=== PATIENT | male | born 1990 ===

== ENCOUNTER 2017-04-08 08:29 | Emergency (ER) | payer OTHER ==
[2017-04-08 08:39] VITALS: TEMP 98
[2017-04-08] MEDS ORDERED: Sodium Chloride 0.9% 500 ML IV ONE (09:00)
--- NOTE | 2017-04-08 09:08 | C.PDOC ---
History Of Present Illness 27 yo male w/o significant PMHx come in for evaluation of Left sided sharp chest pain developed since yesterday. Pt reports, pain is intermittent, sharp, non-radiating, improves with pressure applied to chest wall by hand. Pt admits, was seen by PMD Dr. Nair 1 week ago " he told me that I need to see barrel rifler button". Pt reports, " never had chest pain in my life, first time yesterday". Pt admits, previous hx of anxiety in past. Otherwise, pt denies fever, chills, headache, dizziness, visual changes, neck pain, SOB, dyspnea, diaphoresis, palpitation, cough, wheezing, abd. pain, N/V/D, back pain, UTI sx, denies drug use, smoking. Pt denies any known family hx of early CAD. At the time of evaluation, comfortable, not in any apparent distress. Time Seen by Provider: 04/08/17 08:33 Chief Complaint (Nursing): Chest Pain History Per: Patient History/Exam Limitations: no limitations Onset/Duration Of Symptoms: Days (1) Current Symptoms Are (Timing): Still Present Quality: Sharp Past Medical History Reviewed: Historical Data, Nursing Documentation, Vital Signs Vital Signs: Last Vital Signs Temp 98 F 04/08/17 08:39 Pulse 65 04/08/17 13:12 Resp 16 04/08/17 13:12 BP 130/73 04/08/17 13:12 Pulse Ox 100 04/08/17 13:12 Surgical History: Appendectomy Family History: States: No Known Family Hx - Social History Hx Alcohol Use: No Hx Substance Use: No - Immunization History Hx Tetanus Toxoid Vaccination: No Hx Influenza Vaccination: No Hx Pneumococcal Vaccination: No Review Of Systems Except As Marked, All Systems Reviewed And Found Negative. Constitutional: Negative for: Fever, Chills Eyes: Negative for: Vision Change Cardiovascular: Positive for: Chest Pain (Left sided chest pain). Negative for : Palpitations Respiratory: Negative for: Cough, Shortness of Breath, Wheezing Gastrointestinal: Negative for: Nausea, Vomiting, Abdominal Pain, Diarrhea Musculoskeletal: Negative for: Neck Pain, Back Pain Neurological: Negative for: Headache, Dizziness Physical Exam - Physical Exam Appears: Well, Non-toxic, No Acute Distress Skin: Normal Color, Warm, Dry, No Rash Head: Normacephalic Eye(s): bilateral: PERRL Nose: No Flaring, No Discharge Oral Mucosa: Moist, No Drooling Throat: No Erythema, No Exudate, No Drooling Neck: No Midline Cervical Tenderness, No Paracervical Tenderness, No Step Off Deformity, Supple Chest: Symmetrical, No Deformity, Tenderness (mild reproducable tenderness left lateral chest wall over pectoris muscle.), No Ecchymosis, No Subcutaneous Emphysema Cardiovascular: Rhythm Regular, No Friction Rub, No Murmur, No JVD, Other ((-) carotid bruits B/L) Respiratory: No Decreased Breath Sounds, No Accessory Muscle Use, No Stridor, No Wheezing Gastrointestinal/Abdominal: Soft, No Tenderness, No Distention, No Guarding Back: No CVA Tenderness, No Vertebral Tenderness Extremity: Normal ROM, No Pedal Edema, No Deformity Neurological/Psych: Oriented x3, Normal Speech ED Course And Treatment - Laboratory Results Result Diagrams: 04/08/17 09:08 04/08/17 09:08 Lab Interpretation: No Acute Changes ECG: Interpreted By Me, Viewed By Me ECG Rhythm: Sinus Rhythm Interpretation Of ECG: SR@68/min, NAD, incomplete RBBB, no acute T wave or ST-T changes. No old EKG available Rate From EC (BPM) O2 Sat by Pulse Oximetry: 100 (RA) Pulse Ox Interpretation: Normal - Radiology CXR: Viewed By Me, Read By Radiologist CXR Interpretation: Yes: No Acute Disease - CT Scan/US CT - Angio Chest Other Rad Studies (CT/US): Read By Radiologist, Radiology Report Reviewed CT/US Interpretation: PROCEDURE: CT Chest with contrast (Pulmonary Angiogram). HISTORY: chest pain. COMPARISON: None available. TECHNIQUE: Axial computed tomography images were obtained of the chest in the pulmonary arterial phase of enhancement. Coronal and sagittal reformatted images were created and reviewed. Intravenous contrast dose: 100 milliliters Visipaque 320. Radiation dose: Total exam DLP = 301.36 MGy-cm. This CT exam was performed using one or more of the following dose reduction techniques: Automated exposure control, adjustment of the mA and/or kV according to patient size, and/or use of iterative reconstruction technique. FINDINGS: PULMONARY ARTERIES: Evaluation of the pulmonary distal segmental branches is performed. The subsegmental branches is limited by motion artifact. However, there are no filling defects within the main, segmental or subsegmental pulmonary arteries suggest pulmonary embolism. AORTA: No acute findings. No thoracic aortic aneurysm. LUNGS: Unremarkable. No nodule, mass or pulmonary consolidation. PLEURAL SPACES: Unremarkable. No effusion or pneuomothorax. HEART: Unremarkable. No cardiomegaly. No significant pericardial effusion. LYMPH NODES: No lymphadenopathy. BONES, CHEST WALL: Unremarkable. No fracture or destructive lesion. OTHER FINDINGS: Unremarkable. IMPRESSION: Unremarkable CT pulmonary angiogram. No pulmonary embolus. Progress Note: Pt was OBS in ED for 3.5 hrs and remained stable during ED evaluation. Pt reports, " feel better", denies CP at present time. Afebrile, hemodynamicaly stable, not n any apparent distress. PulseOx 100% RA. neck: Supple, (-) JVD, (-) carotid bruits B/L. Lungs: CTA B/L, BS equal B/L. CVS: (+ )S1S2, reg. Abd: benign, (-) guarding, (-) rebound. back: (-) CVA tenderness. Blood work, imaging, EKG review and all appears normal. case discussed with ED attending and discharge with outpt f[facility]. results review with pt, [facility], Card in 2-3 days for re-eval and further tx. Pt understand, stable for discharge now. Medical Decision Making Medical Decision Making: PLAN: * CT - Angio Chest * CXR * EKG * Drug Screen * Troponin * D-Dimer * CBC * CMP * Urinalysis * Aspirin PO * Toradol IVP * Sodium Chloride IV Disposition Counseled Patient/Family Regarding: Diagnosis, Need For Followup - Disposition Referrals: [facility] [Outside] Disposition: HOME/ ROUTINE Disposition Time: 12:43 Condition: STABLE Additional Instructions: Follow up with PMD in 2-3 days for re-evaluation. Return to ED if any worsening or new changes. Instructions: Chest Pain (ED) Forms: [facility] (Croatian), Work Excuse - Clinical Impression Clinical Impression: Chest pain - PA / .NET PROGRAMMER / Resident Statement MD/DO has reviewed & agrees with the documentation as recorded. - Scribe Statement The provider has reviewed the documentation as recorded by the Scribe Sindhu Kendall All medical record entries made by the Scribe were at my direction and personally dictated by me. I have reviewed the chart and agree that the record accurately reflects my personal performance of the history, physical exam, medical decision making, and the department course for this patient. I have also personally directed, reviewed, and agree with the discharge instructions and disposition.
[2017-04-08 09:11] LABS: BASO # 0.1 K/uL (0.0-0.2); EOS % 0.5 % (0.0-4.0); LYMPH # 1.9 K/uL (1.0-4.3); LYMPH % 30.8 % (20.0-40.0); MEAN CELL VOLUME 89.1 fL (80.0-94.0); MEAN CORPUSCULAR HEMOGLOBIN 29.7 pg (27.0-31.0); MEAN CORPUSCULAR HGB CONC 33.4 g/dL (33.0-37.0); MONO # 0.6 K/uL (0.0-0.8); MONO % 10.1 % (0.0-10.0); NRBC % 0.2 % (0.0-2.0); RED CELL DISTRIBUTION WIDTH 13.7 % (11.5-14.5); WHITE BLOOD COUNT 6.2 K/uL (4.8-10.8)
[2017-04-08 09:20] LABS: CHLORIDE 98 mmol/L (98-107); SODIUM 134 mmol/L (132-148)
[2017-04-08 09:21] LABS: POTASSIUM 3.5 mmol/L (3.6-5.2)
[2017-04-08 09:23] LABS: ALB/GLOB RATIO 1.4 (1.0-2.1); ALKALINE PHOSPHATASE 49 U/L (38-126); ALT/SGPT 34 U/L (21-72); AST/SGOT 30 U/L (17-59); BILIRUBIN,TOTAL 0.9 mg/dL (0.2-1.3); BLOOD UREA NITROGEN 10 mg/dL (9-20); CALCIUM 9.5 mg/dl (8.6-10.4); CARBON DIOXIDE 27 mmol/L (22-30); GFR AFRICAN-AMERICAN > 60; GLUCOSE,RANDOM 86 mg/dL (75-110); TOTAL PROTEIN 7.8 g/dL (6.3-8.3)
[2017-04-08 09:46] VITALS: RESP 16
[2017-04-08 10:00] LABS: INR 1.2
--- NOTE | 2017-04-08 10:05 | RAD ---
HISTORY: chest pain COMPARISON: No prior. TECHNIQUE: Chest PA and lateral FINDINGS: LUNGS: No active pulmonary disease. PLEURA: No significant pleural effusion identified. No pneumothorax apparent. CARDIOVASCULAR: Normal. OSSEOUS STRUCTURES: No significant abnormalities. VISUALIZED UPPER ABDOMEN: Normal. OTHER FINDINGS: None. IMPRESSION: No active disease.
[2017-04-08] MEDS ORDERED: Iodixanol 320 MG/ML 100 ML BOTTLE IV ONE (11:17)
[2017-04-08 12:41] VITALS: O2SAT 100
--- NOTE | 2017-04-08 12:41 | CT ---
PROCEDURE: CT Chest with contrast (Pulmonary Angiogram) HISTORY: chest pain COMPARISON: None available. TECHNIQUE: Axial computed tomography images were obtained of the chest in the pulmonary arterial phase of enhancement. Coronal and sagittal reformatted images were created and reviewed. Intravenous contrast dose: 100 milliliters Visipaque 320 Radiation dose: Total exam DLP = 301.36 MGy-cm. This CT exam was performed using one or more of the following dose reduction techniques: Automated exposure control, adjustment of the mA and/or kV according to patient size, and/or use of iterative reconstruction technique. FINDINGS: PULMONARY ARTERIES: Evaluation of the pulmonary distal segmental branches is performed. The subsegmental branches is limited by motion artifact. However, there are no filling defects within the main, segmental or subsegmental pulmonary arteries suggest pulmonary embolism. AORTA: No acute findings. No thoracic aortic aneurysm. LUNGS: Unremarkable. No nodule, mass or pulmonary consolidation. PLEURAL SPACES: Unremarkable. No effusion or pneuomothorax. HEART: Unremarkable. No cardiomegaly. No significant pericardial effusion. LYMPH NODES: No lymphadenopathy. BONES, CHEST WALL: Unremarkable. No fracture or destructive lesion OTHER FINDINGS: Unremarkable. IMPRESSION: Unremarkable CT pulmonary angiogram. No pulmonary embolus.
[2017-04-08 13:12] VITALS: BP 130/73; PULSE 65
--- NOTE | 2017-04-09 19:13 | CARD ---
APPROVED REPORT EKG Measurement Heart [id number] <Conclusion> Normal sinus rhythm Incomplete right bundle branch block Borderline ECG
== END 2017-04-08 13:12 | disposition home or self-care (01) ==
LOC: C.ER 08:29
DX: R07.9 Chest pain, unspecified (principal)
CPT/HCPCS: 71020; 71275; 80053; 84484; 85025; 85378; 85610; 85730; 93005; 96361; 96374; 99285; J1885; J7040; Q9967